=== PATIENT | female | born 1950 | race Caucasian/White ===

== ENCOUNTER 2023-12-20 12:41 | Emergency (ER) | payer OTHER ==
[~2023-12-20] VITALS: Ht 157.5 cm; Wt 75.0 kg
[2023-12-20 12:42] VITALS: O2SAT 98
[2023-12-20] MEDS ORDERED: MECLIZINE 25MG TABLET PO ONE (14:15)
[2023-12-20] MEDS: MECLIZINE 12.5MG TABLET PO NR (15:05)
[2023-12-20] MEDS: SODIUM CHLORIDE 0.9% 500 ML IV ONE (15:05)
[2023-12-20 15:30] VITALS: TEMP 36.55848
[2023-12-20 15:48] LABS: EOSINOPHILS % 0.3 % (0.0-5.0); HEMOGLOBIN. 14.3 g/dL (12.0-16.0); LYMPHOCYTES % 18.3 % (20.0-50.0); MEAN CORPUSCULAR HEMOGLOBIN 32.3 pg (28.0-32.0); MEAN CORPUSCULAR VOLUME 92.2 fL (81.0-99.0); MEAN PLATELET VOLUME 8.3 fl (7.4-10.4); MONOCYTES % 4.3 % (2.0-8.0); NEUTROPHILS % 76.1 % (40.0-76.0); PLATELET 286 x1000/uL (130-400); RED BLOOD CELL COUNT 4.45 mill/uL (4.2-5.4); RED CELL DISTRIBUTION WIDTH 14.1 % (11.6-14.6); WHITE BLOOD COUNT 6.6 x1000/uL (4.5-11.0)
[2023-12-20 15:54] LABS: CARBON DIOXIDE 26 mEq/L (21-32); CHLORIDE 102 mEq/L (98-107); POTASSIUM 3.8 mEq/L (3.5-5.1); SODIUM 134 mEq/L (136-145)
[2023-12-20 15:55] LABS: CALCIUM 9.6 mg/dL (8.7-10.4)
[2023-12-20 15:59] LABS: CREATININE 0.8 mg/dL (0.6-1.0)
[2023-12-20 16:00] LABS: GLUCOSE 93 mg/dL (70-105); UREA NITROGEN BLOOD 13 mg/dL (9-23)
[2023-12-20 16:01] LABS: ALANINE AMINOTRANSFERASE 15 IU/L (10-49); ASPARTATE AMINOTRANSFERASE 19 IU/L (<34)
[2023-12-20 16:02] LABS: ALBUMIN 4.3 g/dL (3.2-4.8); BILIRUBIN DIRECT 0.1 mg/dL (<=3.0); BILIRUBIN TOTAL 0.6 mg/dL (0.1-1.0); PROTEIN TOTAL 7.7 g/dL (6.0-8.3)
[2023-12-20 16:11] LABS: INR 0.9; PROTHROMBIN TIME 10.1 sec (9.6-11.0)
[2023-12-20] MEDS: DIAZEPAM 5 MG/ML 2ML SYR IV ONE (16:30)
[2023-12-20] MEDS ORDERED: CARB15DR63 EACH EAR (17:46)
[2023-12-20 17:49] VITALS: BP 154/77; PULSE 73; RESP 15; O2SAT 97
== END 2023-12-20 18:14 | disposition home or self-care (01) ==
LOC: ER 12:41
DX: R42 Dizziness and giddiness (principal); R11.0 Nausea
CPT/HCPCS: 99285; 96374; 70450; 80076; 80048; 85025; 85610; 36415; J8597; J7040